=== PATIENT | male | born 1945 | race Caucasian/White ===

== ENCOUNTER → 2023-12-16 08:40 | Outpatient (REF) | payer MEDICARE, OTHER, SELFPAY | LOC: RAD 08:40 | PROVIDERS: ATTENDING PHYSICIAN Surgery Vascular Surgery; FAMILY PHYSICIAN Family Medicine | DX: I75.022 Atheroembolism of left lower extremity (principal); I73.9 Peripheral vascular disease, unspecified | CPT/HCPCS: 93922; 93925 ==

== ENCOUNTER → 2024-06-22 08:36 | Outpatient (REF) | payer MEDICARE, OTHER, SELFPAY | LOC: RCS 08:36 | PROVIDERS: FAMILY PHYSICIAN Family Medicine | DX: Z01.818 Encounter for other preprocedural examination (principal); I35.1 Nonrheumatic aortic (valve) insufficiency; I48.19 Other persistent atrial fibrillation; I71.21 Aneurysm of the ascending aorta, without rupture; I42.9 Cardiomyopathy, unspecified; I35.9 Nonrheumatic aortic valve disorder, unspecified; R06.02 Shortness of breath | CPT/HCPCS: 71046; 93005 ==

== ENCOUNTER 2024-09-19 08:44 | Outpatient (RCR) | payer MEDICARE, OTHER, SELFPAY | END 2024-09-19 23:59 | disposition home or self-care (01) | LOC: CRHB 08:44 | PROVIDERS: ATTENDING PHYSICIAN Internal Medicine Cardiovascular Disease | DX: Z95.4 Presence of other heart-valve replacement (principal) | CPT/HCPCS: G0422; G0423 ==

== ENCOUNTER 2024-10-10 08:54 | Outpatient (RCR) | payer MEDICARE, OTHER, SELFPAY | END 2024-10-10 23:59 | disposition home or self-care (01) | LOC: CRHB 08:54 | PROVIDERS: ATTENDING PHYSICIAN Internal Medicine Cardiovascular Disease | DX: Z95.4 Presence of other heart-valve replacement (principal) | CPT/HCPCS: G0422; G0423 ==

== ENCOUNTER 2024-11-19 10:03 | Outpatient (RCR) | payer MEDICARE, OTHER, SELFPAY | END 2024-11-19 23:59 | disposition home or self-care (01) | LOC: CRHB 10:03 | PROVIDERS: ATTENDING PHYSICIAN Internal Medicine Cardiovascular Disease | DX: Z95.2 Presence of prosthetic heart valve (principal); Z95.4 Presence of other heart-valve replacement (principal) | CPT/HCPCS: G0422; G0423 ==

== ENCOUNTER 2024-12-21 10:36 | Outpatient (RCR) | payer MEDICARE, OTHER, SELFPAY ==
[2024-12-14 07:54] LABS: HDL Cholesterol 62 mg/dl; LDL Cholesterol, Calculated 121 mg/dl; Very Low Density Lipoprotein 11 mg/dl (0-30)
== END 2024-12-21 17:08 | disposition home or self-care (01) ==
LOC: CRHB 10:36
PROVIDERS: ATTENDING PHYSICIAN Internal Medicine Cardiovascular Disease; FAMILY PHYSICIAN Family Medicine
DX: Z95.4 Presence of other heart-valve replacement (principal)
CPT/HCPCS: 36415; 80061; G0422; G0423